=== PATIENT | male | born 1955 | race Caucasian/White ===

== ENCOUNTER 2017-04-23 16:28 | Emergency (ER) | payer OTHER ==
[~2017-04-23] VITALS: Ht 193 cm; Wt 81.7 kg
--- NOTE | ~2017-04-23 | EKG ---
[address] [address] ELECTROCARDIOGRAM REPORT Name: JOSE ALBERTOFREDY BYRNES SHILO [facility]: [facility] [id number] Admission: 04/23/17 Attend Phys: Discharge: 04/23/17 Date of : 55 Report #: [id number] THIS REPORT FOR: //name// 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
[2017-04-23] MEDS ORDERED: ELIQUIS5 MG PO (16:41)
[2017-04-23] MEDS ORDERED: ASPIRIN325 PO (16:42)
[2017-04-23] MEDS ORDERED: LOPRESSOR50 PO (16:42)
[2017-04-23 17:16] LABS: ABSOLUTE NEUTROPHILS 3.4 thou/uL (1.4-8.2); BASOPHILS 0.2 % (0.0-2.0); EOSINOPHILS 2.2 % (0.0-3.0); HEMATOCRIT 41.7 % (42.0-52.0); HEMOGLOBIN 14.7 gm/dL (14.0-18.0); LYMPHOCYTES 29.4 % (24.0-44.0); MANUAL DIFF NO; MCH 33.6 pg (26.0-34.0); MCHC 35.3 g/dL (28.0-37.0); MCV 94.9 fL (80.0-100.0); MONOCYTES 9.7 % (1.0-8.0); PLATELET COUNT 123 thou/uL (150-400); POLYS 58.5 % (36.0-66.0); RBC 4.39 mil/uL (4.50-6.00); RDW 12.9 % (10.5-14.5); WBC 5.8 thou/uL (4.0-11.0)
[2017-04-23 17:22] LABS: ANION GAP 14 mmol/L (7-16); BUN 25 mg/dL (7-18); CALCIUM 9.1 mg/dL (8.5-10.1); CHLORIDE 105 mmol/L (98-107); CO2 22 mmol/L (21-32); GLUCOSE 130 mg/dL (74-106); SODIUM 141 mmol/L (136-145)
[2017-04-23 17:32] LABS: TROPONIN-I < 0.04 ng/mL (<0.04-0.07)
[2017-04-23] MEDS ORDERED: NORCO 5-325 TA1 EACH PO (18:26)
[2017-04-23 18:43] VITALS: BP 118/84
== END 2017-04-23 18:45 | disposition home or self-care (01) ==
LOC: ER 16:28
PROVIDERS: Nurse Practitioner
DX: S16.1XXA Strain of muscle, fascia and tendon at neck level, initial encounter (principal); S40.011A Contusion of right shoulder, initial encounter; I48.91 Unspecified atrial fibrillation; I10 Essential (primary) hypertension; Z88.6 Allergy status to analgesic agent; V89.2XXA Person injured in unspecified motor-vehicle accident, traffic, initial encounter; Y93.89 Activity, other specified; Y92.89 Other specified places as the place of occurrence of the external cause; Y99.8 Other external cause status